=== PATIENT | female | born 1990 | race Caucasian/White ===

== ENCOUNTER 2016-08-31 10:58 | Emergency (ER) | payer OTHER ==
[~2016-08-31] VITALS: Ht 157.5 cm; Wt 52.6 kg
[2016-08-31 11:05] VITALS: BP 103/55
--- NOTE | 2016-08-31 13:29 | NUR ---
PT TO BED 8
--- NOTE | 2016-08-31 13:30 | NUR ---
26/F BIB C/O TOOTHACHE & PAIN TO RIGHT FACE X 5 DAYS . PT STATES PT HAS 7 WEEKS AND HAS NAUSEA & VIMITHING; VOMITHING X 4 TIMES TODAY. PT DENIES DIARRHEA; SKIN IS PINK/WARM/DRY; AAOX4 WITH EVEN AND STEADY GAIT; LUNGS CLEAR BL; HR EVEN AND REGULAR; PT DENIES ANY FEVER, CP, SOB, OR COUGH AT THIS TIME; PATIENT STATES PAIN OF 10/10 AT THIS TIME; VSS; PATIENT POSITIONED FOR COMFORT; HOB ELEVATED; BEDRAILS UP X2; BED DOWN. ER MD MADE AWARE OF PT STATUS.
--- NOTE | 2016-08-31 13:38 | NUR ---
[id number]--ERMD AT BEDSIDE
[2016-08-31] MEDS ORDERED: NACL 0.9% 1,000 ML IV SCH (13:42)
[2016-08-31] MEDS ORDERED: ACETAMINOPHEN EXTRA STRENGTH 500 MG TAB PO ONE (13:45)
[2016-08-31] MEDS ORDERED: ONDANSETRON 4 MG/2 ML VIAL IVP ONE (13:45)
--- NOTE | 2016-08-31 16:00 | NUR ---
IV removed, catheter intact and site benign. Applied folded 4x4 gauze and tape to stop bleeding.
[2016-08-31 16:07] VITALS: BP 102/71
--- NOTE | 2016-08-31 16:07 | NUR ---
Patient discharged with v/s stable. Written and verbal after care instructions given and explained. Patient alert, oriented and verbalized understanding of instructions. Ambulatory with steady gait. All questions addressed prior to discharge. ID band removed. Patient advised to follow up with PMD. Rx of TYLENOL, BEEPEN VK &ZOFRAN DOT given. Patient educated on indication of medication including possible reaction and side effects. Opportunity to ask questions provided and answered.
== END 2016-08-31 16:07 | disposition home or self-care (01) ==
LOC: MED 10:58
DX: O26.891 Other specified pregnancy related conditions, first trimester (principal); K08.89 Other specified disorders of teeth and supporting structures; Z3A.00 Weeks of gestation of pregnancy not specified
CPT/HCPCS: 36415; 80053; 81001; 81025; 82150; 83690; 85025; 87086; 96361; 96374; 99284; J2405; J7030

== ENCOUNTER 2016-10-17 17:21 | Emergency (ER) | payer OTHER ==
[~2016-10-17] VITALS: Ht 154.9 cm; Wt 49.4 kg
[2016-10-17 18:02] VITALS: BP 93/64
--- NOTE | 2016-10-17 19:50 | NUR ---
PT TAKEN TO BED 6
--- NOTE | 2016-10-17 19:55 | NUR ---
26 Y/O F W/C/O NAUSEA AND VOMITING AND GENERAL WEAKNESS X 1 WK. PT STATES IS . LMP 08/07/16. PT ON MONITOR, VSS. ER MADE AWARE.
--- NOTE | 2016-10-17 20:33 | NUR ---
Ultrasound at bedside.
--- NOTE | 2016-10-17 20:44 | NUR ---
NS 0.9 % STARTED VIA IV 100ML/HR PER ER MD VERBAL ORDERS.
--- NOTE | 2016-10-17 20:50 | NUR ---
PA STUDENT IRIS EVALUATING PATIENT AT BEDSIDE
[2016-10-17] MEDS ORDERED: NACL 0.9% 1,000 ML IV ONE (21:10)
[2016-10-17] MEDS ORDERED: ONDANSETRON 4 MG/2 ML VIAL IVP ONE (21:10)
[2016-10-17 21:50] VITALS: BP 98/62
--- NOTE | 2016-10-17 21:50 | NUR ---
Patient discharged with v/s stable. Written and verbal after care instructions given and explained. Patient verbalized understanding. Ambulatory with steady gait. All questions addressed prior to discharge. Advised to follow up with PMD TOMORROW OR RETURN TO ER IF CONDITION WORSENS.
== END 2016-10-17 21:50 | disposition home or self-care (01) ==
LOC: MED 17:21
DX: O21.0 Mild hyperemesis gravidarum (principal); Z3A.13 13 weeks gestation of pregnancy
CPT/HCPCS: 36415; 76801; 80048; 81001; 84702; 85025; 86900; 86901; 96361; 96374; 99285; J2405; J7030; Q0092

== ENCOUNTER 2016-11-27 17:23 | Emergency (ER) | payer OTHER ==
[~2016-11-27] VITALS: Ht 153.7 cm; Wt 51.5 kg
[2016-11-27 17:33] VITALS: BP 88/58
[2016-11-27] MEDS: NACL 0.9% 1,000 ML IV ONE ×2 (18:21→19:27)
[2016-11-27 18:36] LABS: BASOPHILS # (AUTO) 0.1 K/uL (0.00-0.22); BASOPHILS % (AUTO) 1.6 % (0.0-2.0); EOSINOPHILS # (AUTO) 0.1 K/uL (0-0.4); EOSINOPHILS % (AUTO) 0.9 % (0.0-4.0); HEMOGLOBIN 12.8 g/dL (12.0-16.0); LYMPHOCYTES # (AUTO) 1.6 K/uL (2.5-16.5); LYMPHOCYTES % (AUTO) 18.7 % (20.5-51.1); MEAN CORPUSCULAR HEMOGLOBIN 31 pg (27-31); MEAN CORPUSCULAR HGB CONC 34 g/dL (33-37); MEAN CORPUSCULAR VOLUME 93 fL (80-94); MONOCYTES # (AUTO) 0.5 K/uL (0.8-1.0); NEUTROPHILS # (AUTO) 6.3 K/uL (1.8-7.7); NEUTROPHILS % (AUTO) 72.8 % (42.2-75.2); PLATELET COUNT (AUTO) 161 K/uL (140-450); RED BLOOD CELL COUNT(AUTO) 4.09 MIL/uL (4.20-5.40); WHITE BLOOD COUNT (AUTO) 8.6 K/uL (4.8-10.8)
[2016-11-27 18:46] LABS: ANION GAP 10.2 (8-16); CALCIUM 8.8 mg/dL (8.5-10.1); CARBON DIOXIDE 27.5 mmol/L (21-32); CREATININE 0.6 mg/dL (0.6-1.3); POTASSIUM 3.7 mmol/L (3.5-5.1)
[2016-11-27 18:55] LABS: MAGNESIUM 1.9 mg/dL (1.8-2.4); TOTAL BILIRUBIN 0.9 mg/dL (0.0-1.0)
[2016-11-27 19:02] LABS: APPEARANCE,URINE SL CLOUDY (CLEAR); BILIRUBIN,URINE NEGATIVE (NEGATIVE); BLOOD, URINE NEGATIVE (NEGATIVE); COLOR,URINE YELLOW (YELLOW); LEUKOCYTE ESTERASE ,URINE 2+ (NEGATIVE); NITRITE, URINE NEGATIVE (NEGATIVE); PROTEIN,URINE 1+ (NEGATIVE); UGLUCOSE NEGATIVE (NEGATIVE)
[2016-11-27 19:06] LABS: BACTERIA,URINE 4+ /HPF (None Seen); RBC,URINE 0-5 /HPF (0-5); WBC,URINE 40-60 /HPF (0-5)
[2016-11-27 19:07] LABS: MUCUS,URINE 1+ /LPF (None Seen); SQUAMOUS EPITHELIAL CELL,UR 20-40 /LPF (0-3 (FEW))
[2016-11-27] MEDS ORDERED: cefTRIAXone 1,000 MG VIAL ONE (19:33)
[2016-11-27 20:28] VITALS: BP 114/79
== END 2016-11-27 20:27 | disposition home or self-care (01) ==
LOC: MED 17:23
DX: O23.42 Unspecified infection of urinary tract in pregnancy, second trimester (principal); O21.2 Late vomiting of pregnancy; Z3A.20 20 weeks gestation of pregnancy
CPT/HCPCS: 36415; 80053; 81001; 81025; 83735; 85025; 87086; 96361; 96365; 99284; J0696; J7030; J7060

== ENCOUNTER 2018-09-10 03:31 | Emergency (ER) | payer OTHER ==
[~2018-09-10] VITALS: Ht 157.5 cm; Wt 59.9 kg
[2018-09-10 03:35] VITALS: BP 108/71
--- NOTE | 2018-09-10 03:41 | NUR ---
PT PRESENTS TO ED WITH RUQ ABD PAIN RADIATING TO RIGHT LOWER BACK X8 HRS. NO PAST MEDICAL HX. PAIN WITH PALPATION. ABD SOFT/FLAT/TENDER 8/10 SHARP STABBING PAIN. NO CHANGE IN URINATION. X4 BOWEL SOUNDS HYPERACTIVE. LAST BM 09/09/18. A&OX4. VSS. POSITIONED IN BED FOR COMFORT. FATHER AT BEDSIDE. ER MD AWARE. CONTINUE TO MONITOR.
--- NOTE | 2018-09-10 03:41 | NUR ---
PT AMBULATED TO BED #2
[2018-09-10] MEDS ORDERED: KETOROLAC 30 MG/ML VIAL IM ONE (04:05)
[2018-09-10 04:57] LABS: BASOPHILS % (AUTO) 0.3 % (0.0-2.0); EOSINOPHILS # (AUTO) 0.1 K/uL (0-0.4); EOSINOPHILS % (AUTO) 1.5 % (0.0-4.0); HEMATOCRIT 43.3 % (36-48); HEMOGLOBIN 14.6 g/dL (12.0-16.0); LYMPHOCYTES # (AUTO) 1.8 K/uL (2.5-16.5); LYMPHOCYTES % (AUTO) 28.7 % (20.5-51.1); MEAN CORPUSCULAR HEMOGLOBIN 31 pg (27-31); MEAN CORPUSCULAR HGB CONC 34 g/dL (33-37); MEAN CORPUSCULAR VOLUME 91.3 fL (80-94); MONOCYTES # (AUTO) 0.5 K/uL (0.8-1.0); MONOCYTES % (AUTO) 7.6 % (1.7-9.3); NEUTROPHILS # (AUTO) 3.9 K/uL (1.8-7.7); NEUTROPHILS % (AUTO) 61.9 % (42.2-75.2); PLATELET COUNT (AUTO) 156 K/uL (140-450); RED BLOOD CELL COUNT(AUTO) 4.74 MIL/uL (4.20-5.40); RED CELL DISTRIBUTION WIDTH 13.1 % (11.6-13.7); WHITE BLOOD COUNT (AUTO) 6.2 K/uL (4.8-10.8)
--- NOTE | 2018-09-10 04:59 | NUR ---
PT STATES PAIN MANAGEMENT EFFECTIVE. 08/02. VSS. CONTINUE TO MONITOR.
[2018-09-10 05:11] LABS: ANION GAP 13.3 (8-16); CARBON DIOXIDE 27.2 mmol/L (21-32); CREATININE 0.5 mg/dL (0.6-1.3); POTASSIUM 4.5 mmol/L (3.5-5.1)
[2018-09-10 05:23] LABS: ALBUMIN 3.6 g/dL (3.4-5.0); TOTAL BILIRUBIN 0.9 mg/dL (0.0-1.0)
[2018-09-10] MEDS ORDERED: ACETAMINOPHEN 325 MG TAB PO ONE (05:45)
[2018-09-10 06:00] VITALS: BP 98/58
--- NOTE | 2018-09-10 06:00 | NUR ---
DISCHARGE INSTRUCTIONS PROVIDED. PT STATES 0/10 ABD PAIN. NON-RADIATING. NO TENDERNESS. VSS. NO N/V. PT VERBALIZED DC INSTRUCTIONS. ACCOMPANIED BY FATHER.
== END 2018-09-10 06:00 | disposition home or self-care (01) ==
LOC: MED 03:31
DX: K80.00 Calculus of gallbladder with acute cholecystitis without obstruction (principal); M54.6 Pain in thoracic spine; Z87.19 Personal history of other diseases of the digestive system
CPT/HCPCS: 36415; 80053; 81002; 81025; 83690; 85025; 96372; 99283; J1885

== ENCOUNTER 2019-04-09 12:07 | Emergency (ER) | payer OTHER ==
[~2019-04-09] VITALS: Ht 157.5 cm; Wt 58.1 kg
[2019-04-09 12:10] VITALS: BP 114/70
[2019-04-09] MEDS ORDERED: KETOROLAC 30 MG/ML VIAL IM ONE (12:45)
[2019-04-09 13:17] LABS: BASOPHILS % (AUTO) 0.4 % (0.0-2.0); EOSINOPHILS # (AUTO) 0.1 K/uL (0-0.4); EOSINOPHILS % (AUTO) 0.6 % (0.0-4.0); HEMATOCRIT 45.2 % (36-48); HEMOGLOBIN 15.3 g/dL (12.0-16.0); LYMPHOCYTES # (AUTO) 1.5 K/uL (2.5-16.5); LYMPHOCYTES % (AUTO) 17.2 % (20.5-51.1); MEAN CORPUSCULAR HEMOGLOBIN 31 pg (27-31); MEAN CORPUSCULAR HGB CONC 34 g/dL (33-37); MEAN CORPUSCULAR VOLUME 91.4 fL (80-94); MONOCYTES # (AUTO) 0.6 K/uL (0.8-1.0); MONOCYTES % (AUTO) 6.5 % (1.7-9.3); NEUTROPHILS # (AUTO) 6.4 K/uL (1.8-7.7); NEUTROPHILS % (AUTO) 75.3 % (42.2-75.2); PLATELET COUNT (AUTO) 160 K/uL (140-450); RED BLOOD CELL COUNT(AUTO) 4.94 MIL/uL (4.20-5.40); RED CELL DISTRIBUTION WIDTH 12.6 % (11.6-13.7); WHITE BLOOD COUNT (AUTO) 8.5 K/uL (4.8-10.8)
[2019-04-09 13:41] LABS: ALBUMIN 4.1 g/dL (3.4-5.0); ANION GAP 16.6 (8-16); CARBON DIOXIDE 24.3 mmol/L (21-32); CREATININE 0.6 mg/dL (0.6-1.3); POTASSIUM 3.9 mmol/L (3.5-5.1); TOTAL BILIRUBIN 1.6 mg/dL (0.0-1.0)
[2019-04-09 15:27] VITALS: BP 105/71
== END 2019-04-09 15:27 | disposition home or self-care (01) ==
LOC: MED 12:07
DX: K80.00 Calculus of gallbladder with acute cholecystitis without obstruction (principal)
CPT/HCPCS: 36415; 76705; 80053; 81002; 81025; 83690; 85025; 96372; 99284; J1885; Q0092

== ENCOUNTER 2019-06-01 10:12 | Emergency (ER) | payer OTHER ==
[~2019-06-01] VITALS: Ht 154.9 cm; Wt 60.9 kg
[2019-06-01 10:18] VITALS: BP 124/79
--- NOTE | 2019-06-01 10:21 | NUR ---
urine cup handed to pt for sample
--- NOTE | 2019-06-01 10:23 | NUR ---
Patient ambulated to bed 2. RN evaluating patient at bedside.
[2019-06-01] MEDS ORDERED: KETOROLAC 60 MG/2 ML VIAL IM ONE (10:25)
--- NOTE | 2019-06-01 10:28 | NUR ---
29 y/o female presenting with c/c of abdominal pain with vomiting, started today 0600 hours, 10/10 pain. per patient was here at [facility] and got dx with gallstones, similar symptoms reocurring today. per pt nka. no medical hx. no meds on reg basis. No diarrhea. bowels sounds normoactive.
--- NOTE | 2019-06-01 10:28 | NUR ---
pt dressed in gown, side rail x1.
--- NOTE | 2019-06-01 11:30 | NUR ---
Dr. Eckert is evaluating the patient at bedside.
[2019-06-01] MEDS ORDERED: ONDANSETRON 4 MG ODT PO ONE (11:35)
[2019-06-01] MEDS ORDERED: MORPHINE SULFATE 4 MG/ML SYR IM ONE (11:35)
--- NOTE | 2019-06-01 12:08 | NUR ---
Patient discharged with v/s stable. Written and verbal after care instructions given and explained. Patient alert, oriented and verbalized understanding of instructions. Ambulatory with steady gait. All questions addressed prior to discharge. ID band removed. Patient advised to follow up with PMD. Rx of NORCO, IBUPROFEN AND ZOFRAN given. Patient educated on indication of medication including possible reaction and side effects. Opportunity to ask questions provided and answered.
[2019-06-01 12:09] VITALS: BP 115/70
== END 2019-06-01 12:08 | disposition home or self-care (01) ==
LOC: MED 10:12
DX: R10.11 Right upper quadrant pain (principal); R11.2 Nausea with vomiting, unspecified
CPT/HCPCS: 81002; 81025; 96372; 99283; J1885; J2270; Q0162